=== PATIENT | male | born 1965 | race Caucasian/White ===

== ENCOUNTER 2020-07-07 05:11 | Emergency (ER) | payer MEDICAID ==
[~2020-07-07] VITALS: Ht 182.8 cm; Wt 110.0 kg
[2020-07-07 06:00] LABS: BASOPHILS % (AUTO) 0 % (0-10); EOSINOPHILS % (AUTO) 0 % (0-10); HEMATOCRIT 49 % (40-54); HEMOGLOBIN 16.3 g/dL (13.3-17.7); LYMPHOCYTES # (AUTO) 1.6 10^3/uL (1.0-4.0); LYMPHOCYTES % (AUTO) 24 % (12-44); MEAN CORPUSCULAR HEMOGLOBIN 27 pg (25-34); MEAN CORPUSCULAR HGB CONC 34 g/dL (32-36); MEAN CORPUSCULAR VOLUME 82 fL (80-99); MEAN PLATELET VOLUME 9.9 fL (9.0-12.2); MONOCYTES # (AUTO) 0.7 10^3/uL (0.0-1.0); MONOCYTES % (AUTO) 10 % (0-12); NEUTROPHILS # (AUTO) 4.4 10^3/uL (1.8-7.8); NEUTROPHILS % (AUTO) 65 % (42-75); PLATELET COUNT 125 10^3/uL (130-400); WHITE BLOOD COUNT 6.7 10^3/uL (4.3-11.0)
[2020-07-07] MEDS ORDERED: LACTATED RINGERS 1,000 ML IV ONE (06:00)
[2020-07-07 06:07] LABS: ALBUMIN 4.2 GM/DL (3.2-4.5)
[2020-07-07 06:08] LABS: POTASSIUM 3.6 MMOL/L (3.6-5.0)
[2020-07-07 06:09] LABS: CALCIUM 9.3 MG/DL (8.5-10.1)
[2020-07-07 06:10] LABS: TOTAL PROTEIN 7.5 GM/DL (6.4-8.2)
[2020-07-07 06:12] LABS: BILIRUBIN,TOTAL 0.9 MG/DL (0.1-1.0)
[2020-07-07 06:14] LABS: CREATININE SERUM 1.26 MG/DL (0.60-1.30)
--- NOTE | 2020-07-07 06:46 | ED Cough/URI ---
General Chief Complaint: Cough/Cold/Flu Symptoms Stated Complaint: POSS BROCHITIS,WEAK,DEHYDRATION,POSS PUI Nursing Triage Note: TO ED VIA POV AND AMBULATORY TO ROOM 9 WITH C/O LETHARGY AND STATING "I FEEL LIKE I NEED HYDRATION" AND HAS COUGH. STATES HE HAS SEEN 2 DOCTORS AND TOLD HE HAS CHRONIC BRONCHITIS. DENIES FEVER, N/V/D. Sepsis Screen: No Definite Risk Source: patient Exam Limitations: no limitations History of Present Illness Date Seen by Provider: Jul 07, 2020 Time Seen by Provider: 05:40 Initial Comments This 54-year-old gentleman presents to the emergency room with primary complaint of fatigue. He is also had a cough for about 12 days. He states he went to the [facility] clinic and he was told it was chronic bronchitis. He was not Covid tested. He denies any fever, vomiting, diarrhea, or other symptoms. He states he feels dehydrated because he has had problems with dehydration and fatigue when he has had bronchitis in the past. He does use an inhaler at home. Allergies and Home Medications Allergies Coded Allergies: No Known Drug Allergies (Unverified , 07/07/20) Patient Home Medication List Home Medication List Reviewed: Yes Review of Systems Review of Systems Constitutional: see HPI EENTM: no symptoms reported Respiratory: see HPI Cardiovascular: no symptoms reported Gastrointestinal: no symptoms reported Genitourinary: no symptoms reported Musculoskeletal: no symptoms reported Skin: no symptoms reported Psychiatric/Neurological: No Symptoms Reported Hematologic/Lymphatic: No Symptoms Reported Past Gcnrgau-Lslmnb-Wnruiz Hx Patient Social History Alcohol Use: Denies Use Smoking Status: Never a Smoker Recent Infectious Disease Expo: No Past Medical History Surgeries: No Respiratory: No Cardiac: Yes Hypertension Neurological: No Genitourinary: No Gastrointestinal: No Musculoskeletal: No Endocrine: Yes Diabetes, Non-Insulin dep HEENT: No Cancer: No Psychosocial: No Integumentary: No Physical Exam Vital Signs - First Documented 07/07/20 07/07/20 05:41 06:48 Pulse 96 Resp 18 B/P (MAP) 195/95 (128) Pulse Ox 98 O2 Delivery Room Air Capillary Refill : Less Than 3 Seconds Height: '" Weight: lbs. oz. 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, no motor/sensory deficits, alert, normal mood/affect, oriented x 3 Skin: normal color, warm/dry Progress/Results/Core Measures Suspected Sepsis Recent Fever Within 48 Hours: No Infection Criteria Present: Suspected New Infection New/Unexplained Altered Menta: No Sepsis Screen: No Definite Risk SIRS Temperature: Pulse: 96 Respiratory Rate: 18 Laboratory Tests 07/07/20 05:45: White Blood Count 6.7 Blood Pressure 195 /95 Mean: 128 Laboratory Tests 07/07/20 05:45: Creatinine 1.26, Platelet Count 125L, Total Bilirubin 0.9 Results/Orders Lab Results Laboratory Tests Test 07/07/20 05:45 07/07/20 05:50 Range/Units White Blood Count 6.7 4.3-11.0 10^3/uL Red Blood Count 5.96 H 4.30-5.52 10^6/uL Hemoglobin 16.3 13.3-17.7 g/dL Hematocrit 49 40-54 % Mean Corpuscular Volume 82 80-99 fL Mean Corpuscular Hemoglobin 27 25-34 pg Mean Corpuscular Hemoglobin Concent 34 32-36 g/dL Red Cell Distribution Width 13.9 10.0-14.5 % Platelet Count 125 L 130-400 10^3/uL Mean Platelet Volume 9.9 9.0-12.2 fL Immature Granulocyte % (Auto) 1 % Neutrophils (%) (Auto) 65 42-75 % Lymphocytes (%) (Auto) 24 12-44 % Monocytes (%) (Auto) 10 0-12 % Eosinophils (%) (Auto) 0 0-10 % Basophils (%) (Auto) 0 0-10 % Neutrophils # (Auto) 4.4 1.8-7.8 10^3/uL Lymphocytes # (Auto) 1.6 1.0-4.0 10^3/uL Monocytes # (Auto) 0.7 0.0-1.0 10^3/uL Eosinophils # (Auto) 0.0 0.0-0.3 10^3/uL Basophils # (Auto) 0.0 0.0-0.1 10^3/uL Immature Granulocyte # (Auto) 0.0 0.0-0.1 10^3/uL Sodium Level 135 135-145 MMOL/L Potassium Level 3.6 3.6-5.0 MMOL/L Chloride Level 99 98-107 MMOL/L Carbon Dioxide Level 24 21-32 MMOL/L Anion Gap 12 5-14 MMOL/L Blood Urea Nitrogen 12 7-18 MG/DL Creatinine 1.26 0.60-1.30 MG/DL Estimat Glomerular Filtration Rate 60 BUN/Creatinine Ratio 10 Glucose Level 180 H 70-105 MG/DL Calcium Level 9.3 8.5-10.1 MG/DL Corrected Calcium 9.1 8.5-10.1 MG/DL Magnesium Level 2.0 1.6-2.4 MG/DL Total Bilirubin 0.9 0.1-1.0 MG/DL Aspartate Amino Transf (AST/SGOT) 41 H 5-34 U/L Alanine Aminotransferase (ALT/SGPT) 48 0-55 U/L Alkaline Phosphatase 73 40-136 U/L Total Protein 7.5 6.4-8.2 GM/DL Albumin 4.2 3.2-4.5 GM/DL Coronavirus 2019 ([facility]) Positive H Negative My Orders Orders - SAPPHIRE CROCKETT MD Cbc With Automated Diff (07/07/20 05:51) Comprehensive Metabolic Panel (07/07/20 05:51) Magnesium (07/07/20 05:51) Ed Iv/Invasive Line Start (07/07/20 05:51) Lactated Ringers (Lr 1000 Ml Iv Solution (07/07/20 06:00) Covid 19 Inhouse Test (07/07/20 05:53) Medications Given in ED Current Medications Medications Dose Ordered Sig/Abram Route Start Time Stop Time Status Last Admin Dose Admin Lactated Ringer's 1,000 ml @ 0 mls/hr Q0M ONCE IV 07/07/20 06:00 07/07/20 06:01 DC 07/07/20 05:55 1,000 MLS/HR Vital Signs/I&O 07/07/20 07/07/20 05:41 06:48 Pulse 96 82 Resp 18 18 B/P (MAP) 195/95 (128) 173/80 (128) Pulse Ox 98 O2 Delivery Room Air Room Air Capillary Refill : Less Than 3 Seconds Blood Pressure Mean: 128 Progress Note : Progress Note Rapid Covid test was positive. Patient was given return precautions and instructions for symptomatic care. Departure Impression Primary Impression: COVID-19 Disposition: 01 HOME, SELF-CARE Condition: Stable Departure-Patient Inst. Decision time for Depature: 06:30 Referrals: NO,LOCAL PHYSICIAN (PCP) Primary Care Physician Patient Instructions: Coronavirus Disease 2019 (COVID-19) Overview Add. Discharge Instructions: Quarantine until released by the health department. Your close contacts should also quarantine until released by the health department. Drink plenty of clear liquids. You may take Tylenol and/or ibuprofen for pain and fever. Return to the emergency room if you are having worsening symptoms. Call with questions or concerns. There is suggestion that some supplements such as a multivitamin, vitamin C, vitamin D, elderberry, and zinc may help in the prevention and recovery of COVID-19. Follow package instructions if you choose to use these and do not exceed recommended dosages. All discharge instructions reviewed with patient and/or family. Voiced understanding. Work/School Note: Work Release Form Date Seen in the Emergency Department: Jul 07, 2020 Return to Work: Jul 17, 2020 Other Restrictions Listed Below: Return to work when released by the health department. SAPPHIRE CROCKETT MD Jul 07, 2020 06:46
[2020-07-07 06:48] VITALS: BP 173/80
== END 2020-07-07 06:51 | disposition home or self-care (01) ==
LOC: ER 05:17
DX: U07.1 COVID-19 (principal); I10 Essential (primary) hypertension; E11.9 Type 2 diabetes mellitus without complications
CPT/HCPCS: 36415; 80053; 83735; 85025; 87635